=== PATIENT | female | born 1990 | race Caucasian/White ===

== ENCOUNTER 2017-01-14 09:59 | Emergency (ER) | payer MEDICAID, OTHER ==
[2017-01-14 10:33] VITALS: BP 108/56
--- NOTE | 2017-01-14 10:46 | UC ---
Ear Complaint HPI - HPI Summary HPI Summary: Pt c/o left ear "fullness" x 2-3 days. - History of Current Complaint Chief Complaint: UCEar Stated Complaint: LEFT EAR PAIN Time Seen by Provider: 01/14/17 10:41 Hx Obtained From: Patient Hx Last Menstrual Period: unsure - has IUD ?: No Onset/Duration: Gradual Onset, Lasting Days Severity Initially: Mild Severity Currently: Mild Associated Signs/Symptoms: Positive: Hearing Loss - "fullness" Related History: Seasonal Allergies - Allergies/Home Medications Allergies/Adverse Reactions: Allergies Allergy/AdvReac Type Severity Reaction Status Date / Time Belladonna Allergy Severe Hallucinati Verified 01/14/17 10:28 ons Sulfa Antibiotics Allergy Severe anaphylaxis Verified 01/14/17 10:28 Ciprofloxacin [From Cipro] Allergy Intermediate DEPRESSION Verified 01/14/17 10: 28 / CRYING Home Medications: Home Medications Levonorgestrel (Iud) [Mirena IUD] 20 mcg IU SEE INSTRUCTIONS 01/14/17 [History Confirmed 01/14/17] Sertraline* [Zoloft*] 50 mg PO BEDTIME 01/14/17 [History Confirmed 01/14/17] PMH/Surg Hx/FS Hx/Imm Hx Previously Healthy: Yes - Surgical History Surgical History: Yes Surgery Procedure, Year, and Place: Appendectomy, 2005. Cholecystectomy, 2006 - Family History Known Family History: Positive: Other - postive h for URI - Social History Alcohol Use: None Substance Use Type: None Smoking Status (MU): Light Every Day Tobacco Smoker Type: Cigarettes Amount Used/How Often: 5 cigarettes daily Have You Smoked in the Last Year: Yes Household Exposure Type: Cigarettes - Immunization History Most Recent Tetanus Shot: unknown Review of Systems Constitutional: Negative Skin: Negative Eyes: Negative ENT: Ear Ache - left ear Respiratory: Negative Cardiovascular: Negative Gastrointestinal: Negative Genitourinary: Negative Motor: Negative Neurovascular: Negative Musculoskeletal: Negative Neurological: Negative Psychological: Negative All Other Systems Reviewed And Are Negative: Yes Physical Exam Triage Information Reviewed: Yes Appearance: Well-Appearing Vital Signs: Initial Vital Signs Temp 98.3 F 01/14/17 10:29 Pulse 62 01/14/17 10:29 Resp 16 01/14/17 10:29 BP 108/56 01/14/17 10:29 Pulse Ox 99 07/16/17 10:29 Eye Exam: Normal ENT Exam: Other ENT: Positive: TM bulging - bialteral Neck exam: Normal Respiratory Exam: Normal Cardiovascular Exam: Normal Musculoskeletal Exam: Normal Neurological Exam: Normal Psychological Exam: Normal Skin Exam: Normal Ear Complaint Course/Dx - Differential Dx/Diagnosis Differential Diagnosis/HQI/PQRI: Otitis Externa, Otitis Media, Other - serous otitis left ear Provider Diagnoses: serous otitis bilateral Discharge - Discharge Plan Condition: Stable Disposition: HOME Prescriptions: Cetirizine-Pseudoephedrine [Zyrtec-D Allergy/Congesti] 1 tab PO DAILY #7 tab Patient Education Materials: Serous Otitis Media (ED) Referrals: Viviana Espinoza MD [Primary Care Provider] -
== END 2017-01-14 10:51 | disposition home or self-care (01) ==
LOC: UCCORT 09:59
DX: H65.03 Acute serous otitis media, bilateral (principal)
CPT/HCPCS: 99212; G0463

== ENCOUNTER 2017-07-12 13:42 | Emergency (ER) | payer OTHER ==
[2017-07-12 15:57] VITALS: BP 115/68
--- NOTE | 2017-07-12 16:27 | UC ---
Throat Pain/Nasal Jae HPI - HPI Summary HPI Summary: 26 y/o female presents to the urgent care c/o of sinus pain, nasal congestion with green nasal discharge, specially on the Rt side for the past 3 days. Pt reports symptoms started with common cold symptoms about 3 weeks ago. She has been taking Tylenol, Benadryl PO to alleviate symptoms. Pt denies fever, cough , SOB, chest pain, N/V/D. - History of Current Complaint Chief Complaint: UCGeneralIllness Stated Complaint: SINUSES,ST Time Seen by Provider: 07/12/17 15:57 Hx Obtained From: Patient Hx Last Menstrual Period: unsure - has IUD Onset/Duration: Gradual Onset, Lasting Weeks - 3 weeks, Worse Since - 3 days Severity: Moderate Pain Intensity: 5 Pain Scale Used: 0-10 Numeric Cough: None Associated Signs & Symptoms: Positive: Sinus Discomfort, Nasal Discharge - Epiglottits Risk Factors Epiglottis Risk Factors: Negative - Allergies/Home Medications Allergies/Adverse Reactions: Allergies Allergy/AdvReac Type Severity Reaction Status Date / Time Belladonna Allergy Severe Hallucinati Verified 07/12/17 15:57 ons Sulfa Antibiotics Allergy Severe anaphylaxis Verified 07/12/17 15:57 Ciprofloxacin [From Cipro] Allergy Intermediate DEPRESSION Verified 07/12/17 15: 57 / CRYING PMH/Surg Hx/FS Hx/Imm Hx Previously Healthy: Yes - Pt denies PMHX - Surgical History Surgical History: Yes Surgery Procedure, Year, and Place: Appendectomy, 2005. Cholecystectomy, 2006 - Family History Known Family History: Positive: Hypertension, Other - postive h for URI - Social History Occupation: Employed Full-time Lives: With Family Alcohol Use: None Substance Use Type: None Smoking Status (MU): Light Every Day Tobacco Smoker Type: Cigarettes Amount Used/How Often: 5 cigarettes daily Have You Smoked in the Last Year: Yes Household Exposure Type: Cigarettes - Immunization History Most Recent Tetanus Shot: unknown Review of Systems Constitutional: Negative Skin: Negative Eyes: Negative ENT: Nasal Discharge, Sinus Congestion, Sinus Pain/Tenderness Respiratory: Negative Cardiovascular: Negative Gastrointestinal: Negative Genitourinary: Negative Motor: Negative Musculoskeletal: Negative Neurological: Headache Psychological: Negative Is Patient Immunocompromised?: No All Other Systems Reviewed And Are Negative: Yes Physical Exam Triage Information Reviewed: Yes Vital Signs: Initial Vital Signs Temp 97.5 F 07/12/17 15:53 Pulse 66 07/12/17 15:53 Resp 14 07/12/17 15:53 BP 115/68 07/12/17 15:53 Pulse Ox 100 07/12/17 15:53 - Additional Comments Vitals: reviewed General: Well developed, well-nourished female patient with NAD. Head and face: Normocephalic and atraumatic, Positive tenderness over the frontal and maxillary sinuses.. Eyes: PERRLA, EOMI x 2. Normal conjunctiva. No eye discharge. ENT: Ears and TM with normal limits. Nose: with yellowish discharge and erythematous mucosa. Pharynx with erythema , no exudate. Neck: Supple, no JVD, no carotid bruits and no lymphadenopathy. Lungs: clear, no rales, no rhonchi, no wheezes. CVS: RRR, S1 and S2 present no murmurs or gallops appreciated. Abdomen: soft nontender with positive bowel sounds. Extremities: no edema noted. Neuro: WNL. Skin: warm and dry Throat Pain/Nasal Course/Dx - Course Course Of Treatment: 26 y/o female presents to the urgent care c/o of sinus pain , nasal congestion with green nasal discharge, specially on the Rt side for the past 3 days. Pt reports symptoms started with common cold symptoms about 3 weeks ago. She has been taking Tylenol, Benadryl PO to alleviate symptoms. Pt denies fever, cough, SOB, chest pain, N/V/D. Hx obtained. Pt with sinusitis on examination.Pt with 3 weeks of symptoms getting worse. Pt Rx Amoxicillin PO and flonase nasal spray. Ibuprofen PO for pain. Discharge instructions explained to Pt. Advised to Return to the clinic or PCP if symptoms do not improve.Pt understood and agreed with plan of care. - Differential Dx/Diagnosis Differential Diagnosis/HQI/PQRI: Influenza, Laryngitis, Pharyngitis, Sinusitis, URI Provider Diagnoses: 1- acute bacterial sinusitis Discharge - Discharge Plan Condition: Stable Disposition: HOME Prescriptions: Amoxicillin/Clavulanate TAB* [Augmentin TAB 875*] 875 mg PO BID #20 tab Fluticasone NASAL SPRAY 50MCG* [Flonase NASAL SPRAY 50MCG*] 2 spray BOTH NARES DAILY #1 btl Ibuprofen TAB* [Motrin TAB* 800 MG] 800 mg PO Q6H PRN #20 tab PRN Reason: Headache Patient Education Materials: Sinusitis (ED) Referrals: Charlene Martinez MD [Primary Care Provider] - 3 Days Additional Instructions: 1- Please increase fluid intake and rest. take full course of antibiotic to avoid resistance 2-Use Flonase as directed to help drain fluid. Also buy saline drops to clear sinuses 3-Take Sudafed or Claritin PO to alleviates sinus congestion 4-Return to the clinic or PCP if symptoms do not improve for further management and treatment. 5- Take Ibuprofen after meal as directed to alleviate Headache and sinus pain
== END 2017-07-12 16:46 | disposition home or self-care (01) ==
LOC: UCCORT 13:42
DX: J01.90 Acute sinusitis, unspecified (principal); Z90.49 Acquired absence of other specified parts of digestive tract; Z90.89 Acquired absence of other organs; Z88.1 Allergy status to other antibiotic agents; Z88.2 Allergy status to sulfonamides; F17.210 Nicotine dependence, cigarettes, uncomplicated
CPT/HCPCS: 99212; G0463